=== PATIENT | male | born 1950 | race American Indian/Alaskan Native ===

== ENCOUNTER 2018-12-23 22:43 | Emergency (ER) | payer OTHER ==
[2018-12-24] MEDS ORDERED: IBUPROFEN PO ONE (01:21)
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
[2018-12-24 02:57] VITALS: BP 142/77
== END 2018-12-24 02:57 | disposition home or self-care (01) ==
LOC: ED 22:43
DX: S16.1XXA Strain of muscle, fascia and tendon at neck level, initial encounter (principal); S39.012A Strain of muscle, fascia and tendon of lower back, initial encounter; Z85.3 Personal history of malignant neoplasm of breast; V49.49XA Driver injured in collision with other motor vehicles in traffic accident, initial encounter; X58.XXXA Exposure to other specified factors, initial encounter; Y93.89 Activity, other specified; Y92.89 Other specified places as the place of occurrence of the external cause; Y99.8 Other external cause status
CPT/HCPCS: 72040; 72100